=== PATIENT | female | born 1990 | race African-American/Black ===

== ENCOUNTER 2017-01-08 16:08 | Emergency (ER) | payer OTHER ==
[~2017-01-08] VITALS: Ht 152.4 cm; Wt 59.0 kg
[2017-01-08 16:45] VITALS: BP 120/71
--- NOTE | 2017-01-08 17:11 | PHYS DOC ---
Past Medical History Past Medical History: No Pertinent History Past Surgical History: No Surgical History Additional Information: Nonsmoker Alcohol Use: Occasionally Drug Use: None Adult General Chief Complaint Chief Complaint: SORE THROAT HPI HPI Patient is a 26 year old female who presents with sore throat and subjective fever starting yesterday. She reports nasal congestion and frontal headache as well. She denies cough, any ear pain, or shortness of breath. She did receive a flu shot this season. She denies any known sick contacts. Her PCP is Dr. Matthew. Review of Systems Review of Systems Constitutional: Reports subjective fever. Eyes: Denies change in visual acuity, redness, or eye pain. [] HENT: Denies ear pain. Reports sore throat and nasal congestion. Respiratory: Denies cough or shortness of breath. [] Cardiovascular: Denies chest pain, palpitations or edema. [] GI: Denies abdominal pain, nausea, vomiting, bloody stools or diarrhea. [] : Denies dysuria, hematuria or urinary frequency. [] Musculoskeletal: Denies back pain or joint pain. [] Integument: Denies rash or skin lesions. [] Neurologic: Denies focal weakness or sensory changes. Reports frontal headache. Endocrine: Denies polyuria or polydipsia. [] Psych: Denies anxiety or depression. [] All systems reviewed and negative unless otherwise stated in the HPI. Allergies Allergies Allergies Coded Allergies Type Severity Reaction Last Updated Verified No Known Drug Allergies 04/19/14 No Physical Exam Physical Exam Constitutional: Well developed, well nourished, no acute distress, non-toxic appearance. [] HENT: Normocephalic, atraumatic, bilateral external ears normal, oropharynx moist, no oral exudates, nose normal. Bilateral TMs without erythema or bulging. There is no posterior pharyngeal erythema, but bilateral tonsils are mildly swollen with exudates. Bilateral nasal turbinates are swollen and erythematous with purulent drainage. Eyes: PERRLA, EOMI, conjunctiva normal, no discharge. [] Neck: Normal range of motion, no tenderness, supple, no stridor. [] Cardiovascular: Heart rate regular rhythm, no murmur [] Lungs & Thorax: Bilateral breath sounds clear to auscultation without wheezes, rales, or rhonchi. Skin: Warm, dry, no erythema, no rash. [] Neurologic: Alert and oriented X 3, normal motor function, normal sensory function, no focal deficits noted. [] Psychologic: Affect normal, judgement normal, mood normal. [] Current Patient Data Vital Signs Vital Signs Date Time Temp Pulse Resp B/P Pulse Ox O2 Delivery O2 Flow Rate FiO2 01/08/17 16:45 98.8 102 18 100 Room Air 98.8 Lab Values Laboratory Tests Test 01/08/17 16:50 Influenza Type A Antigen Negative (NEGATIVE) Influenza Type B Antigen Negative (NEGATIVE) EKG EKG [] Radiology/Procedures Radiology/Procedures [] Course & Med Decision Making Course & Med Decision Making Pertinent Labs and Imaging studies reviewed. (See chart for details) Rapid strep negative. I discussed the results with the patient. I recommended Tylenol and ibuprofen for fever or pain control. She is encouraged to increase water intake and get plenty of rest. The patient seemed annoyed with the results. She left prior to receiving her discharge paperwork. Dragon Disclaimer Dragon Disclaimer This electronic medical record was generated, in whole or in part, using a voice recognition dictation system. Departure Departure Impression: Primary Impression: Pharyngitis Disposition: 01 HOME, SELF-CARE Condition: STABLE Referrals: CHALO MATTHEW MD (PCP) Problem Qualifiers Primary Impression: Pharyngitis Pharyngitis/tonsillitis etiology: unspecified etiology Qualified Code: J02.9 - Acute pharyngitis, unspecified GIANNI PARRA Jan 08, 2017 17:11
[2017-01-08 17:36] LABS: OBC FLU VALID
[2017-01-09 06:27] LABS: NEGATIVE OBC STREP NEG; POSITIVE OBC STREP POS
== END 2017-01-08 17:00 | disposition home or self-care (01) ==
LOC: ER 16:08
DX: J02.9 Acute pharyngitis, unspecified (principal)
CPT/HCPCS: 87070; 87804; 87880; 99284

== ENCOUNTER 2017-08-29 05:02 | Emergency (ER) | payer OTHER ==
[~2017-08-29] VITALS: Ht 162.6 cm; Wt 59.0 kg
[2017-08-29 05:15] VITALS: BP 114/80
[2017-08-29] MEDS ORDERED: IBUP-1060 PO (05:16)
--- NOTE | 2017-08-29 05:17 | PHYS DOC ---
Past Medical History Past Medical History: No Pertinent History Past Surgical History: No Surgical History Alcohol Use: Occasionally Drug Use: None Adult General Chief Complaint Chief Complaint: INSECT BITE HPI HPI Patient is a 27 year old f who presents with 2 insect bites to her left anterior thigh and left ring finger. Patient states these bites occurred yesterday. Patient complains of some increased swelling to her left thigh. Patient denies any fevers. Patient denies any systemic symptoms. Patient denies any chest pain or shortness of breath. Patient denies any nausea/vomiting/ diarrhea. Patient denies any difficulty walking. Patient states she put some hydrocortisone cream on it and the swelling got worse. Patient has no other complaints. Review of Systems Review of Systems GEN: Denies fevers, chills, sweats HEENT: Denies blurred vision, sore throat CV: Denies chest pain RESP: Denies shortness of air, cough GI: Denies n/v/d NEURO: Denies confusion, dizziness MSK: Denies weakness, joint pain/swelling SKIN: Insect bite Allergies Allergies Allergies Coded Allergies Type Severity Reaction Last Updated Verified No Known Drug Allergies 04/19/14 No Physical Exam Physical Exam GEN.: No apparent distress. Alert and oriented. HEENT: Head is normocephalic, atraumatic NECK: Supple. LUNGS: CTAB. HEART: RRR, S1, S2 present. Peripheral pulses intact ABDOMEN: Soft, nontender. Positive bowel sounds. EXTREMITIES: Without any cyanosis. 2 insect bites to the left anterior thigh with swelling, and no area of fluctuance, no erythema, no purulent drainage. No area of swelling to the left ring finger. NEUROLOGIC: Normal speech, normal tone PSYCHIATRIC: Normal affect, normal mood. SKIN: No ulcerations EKG EKG [] Radiology/Procedures Radiology/Procedures [] Course & Med Decision Making Course & Med Decision Making Pertinent Labs and Imaging studies reviewed. (See chart for details) ED course: Patient was seen and examined emergency room based on examination I do not believe the patient is having anaphylaxis or systemic reaction from insect bites. I do not believe these are abscesses that need to be drained. I did offer the patient a shot of Decadron to help with the inflammation and swelling however the patient declined the steroid shot and have agreed upon 800 mg of Motrin 3 times a day as needed to help with inflammation. I recommended short- term follow-up with PCP for further evaluation and management. If signs or symptoms of systemic infection such as a fever or purulent drainage from the area of her left thigh or increased redness and warmth she is return immediately to the emergency room for further evaluation and management. At this time I do not believe the patient needs antibiotics. Patient is stable for discharge. Patient was provided with a prescription of 800 mg of Motrin [] Dragon Disclaimer Dragon Disclaimer This electronic medical record was generated, in whole or in part, using a voice recognition dictation system. Departure Departure Impression: Primary Impression: Insect bite Disposition: 01 HOME, SELF-CARE Condition: STABLE Patient Instructions: Insect Bite, [id number] Additional Instructions: Please follow-up with your family physician in the next one to 2 days and return if symptoms increase Scripts Ibuprofen (IBUPROFEN) 800 Mg Tablet 800 MG PO PRN Q8HRS Y for INFLAMMATION for 10 Days, #30 TAB Prov: ROB PACHECO DO 08/29/17 ROB PACHECO DO Aug 29, 2017 05:17
== END 2017-08-29 05:29 | disposition home or self-care (01) ==
LOC: ER 05:02
DX: S70.362A Insect bite (nonvenomous), left thigh, initial encounter (principal); S60.465A Insect bite (nonvenomous) of left ring finger, initial encounter; W57.XXXA Bitten or stung by nonvenomous insect and other nonvenomous arthropods, initial encounter; Y93.89 Activity, other specified; Y99.8 Other external cause status; Y92.89 Other specified places as the place of occurrence of the external cause
CPT/HCPCS: 99282

== ENCOUNTER 2017-12-24 17:28 | Emergency (ER) | payer OTHER ==
[2017-12-24 17:57] LABS: URINE HCG POC HCG POSITIVE (Negative)
[2017-12-24 18:14] LABS: BILIRUBIN,URINE SMALL (NEG); CLARITY,URINE CLEAR; COLOR,URINE AMBER; GLUCOSE,URINE NEGATIVE (NEG); NITRITE,URINE NEGATIVE (NEG); PROTEIN,URINE 30 mg/dL (NEG-TRACE)
[2017-12-24] MEDS: ONDANSETRON ODT 4 MG TAB.RAPDIS. PO ×3 (18:14)
[2017-12-24 18:24] LABS: BACTERIA,URINE 0 /HPF (0-FEW); RBC,URINE 0 /HPF (0-2); SQUAMOUS EPITHELIAL CELL,UR MOD /LPF; WBC,URINE RARE /HPF (0-4)
[2017-12-24] MEDS: IV NORMAL SALINE 1000ML BAG 1,000 ML IV ×3 (18:26)
[2017-12-24 18:33] LABS: ADD MAN DIFF? NO
[2017-12-24 18:37] LABS: BASO % 1 % (0-3); EOS % 1 % (0-3); HEMATOCRIT 30.4 % (36.0-47.0); HEMOGLOBIN 9.6 g/dL (12.0-15.5); LYMPH # 0.9 x10^3/uL (1.0-4.8); LYMPH % 18 % (24-48); MEAN CORPUSCULAR HEMOGLOBIN 22 pg (25-35); MEAN CORPUSCULAR HGB CONC 32 g/dL (31-37); MEAN CORPUSCULAR VOLUME 71 fL (79-100); MONO # 0.6 x10^3/uL (0.0-1.1); MONO % 12 % (0-9); NEUT # 3.6 x10^3uL (1.8-7.7); NEUT % 68 % (31-73); PLATELET COUNT 289 x10^3/uL (140-400); RED BLOOD COUNT 4.27 x10^6/uL (3.50-5.40); RED CELL DISTRIBUTION WIDTH 19.8 % (11.5-14.5); WHITE BLOOD COUNT 5.3 x10^3/uL (4.0-11.0)
[2017-12-24 18:56] LABS: ANION GAP 14 (6-14); BLOOD UREA NITROGEN 10 mg/dL (7-20); BUN/CREATININE RATIO 14 (6-20); CALCIUM 9.4 mg/dL (8.5-10.1); CARBON DIOXIDE 21 mmol/L (21-32); CHLORIDE 101 mmol/L (98-107); CREATININE 0.7 mg/dL (0.6-1.0); GFR 121.5; GLUCOSE 94 mg/dL (70-99); POTASSIUM 3.5 mmol/L (3.5-5.1); SODIUM 136 mmol/L (136-145)
[2017-12-24 19:03] LABS: ALBUMIN 3.8 g/dL (3.4-5.0); ALBUMIN/GLOBULIN RATIO 0.7 (1.0-1.7); ALK PHOS 51 U/L (46-116); ALT (SGPT) 40 U/L (14-59); AST (SGOT) 26 U/L (15-37); LIPASE 74 U/L (73-393); TOTAL BILIRUBIN 0.5 mg/dL (0.2-1.0)
[2017-12-24 19:10] LABS: ANISOCYTOSIS SLIGHT; HYPOCHROMIA MOD; MICROCYTOSIS MOD; PLT ESTIMATE ADEQUATE (ADEQUATE); POIKILOCYTOSIS SLIGHT
== END 2017-12-24 20:39 | disposition home or self-care (01) ==
LOC: ER 17:28
DX: R10.30 Lower abdominal pain, unspecified (principal); Z33.1 Pregnant state, incidental (principal); R11.2 Nausea with vomiting, unspecified; R10.2 Pelvic and perineal pain
CPT/HCPCS: 36415; 76816; 80053; 81001; 81025; 83690; 84702; 85025; 96360; 96361; 99285-25; J7030; Q0162

== ENCOUNTER 2018-01-05 09:15 | Inpatient (IN) | payer OTHER ==
[2018-01-05 10:20] LABS: ADD MAN DIFF? NO
[2018-01-05 10:23] LABS: BILIRUBIN,URINE SMALL (NEG); CLARITY,URINE CLEAR; COLOR,URINE AMBER; GLUCOSE,URINE NEGATIVE (NEG); NITRITE,URINE NEGATIVE (NEG); PROTEIN,URINE 100 mg/dL (NEG-TRACE)
[2018-01-05 10:26] LABS: BASO % 1 % (0-3); EOS % 0 % (0-3); HEMATOCRIT 31.8 % (36.0-47.0); HEMOGLOBIN 10.1 g/dL (12.0-15.5); LYMPH # 0.4 x10^3/uL (1.0-4.8); LYMPH % 7 % (24-48); MEAN CORPUSCULAR HEMOGLOBIN 23 pg (25-35); MEAN CORPUSCULAR HGB CONC 32 g/dL (31-37); MEAN CORPUSCULAR VOLUME 71 fL (79-100); MONO # 0.4 x10^3/uL (0.0-1.1); MONO % 8 % (0-9); NEUT # 4.8 x10^3uL (1.8-7.7); NEUT % 84 % (31-73); PLATELET COUNT 285 x10^3/uL (140-400); RED CELL DISTRIBUTION WIDTH 19.8 % (11.5-14.5); WHITE BLOOD COUNT 5.7 x10^3/uL (4.0-11.0)
[2018-01-05] MEDS: IV DEXTROSE 5% 500 ML IV (10:30)
[2018-01-05 10:38] LABS: BACTERIA,URINE 0 /HPF (0-FEW); RBC,URINE 0 /HPF (0-2)
[2018-01-05 10:42] LABS: ANION GAP 14 (6-14); BLOOD UREA NITROGEN 14 mg/dL (7-20); BUN/CREATININE RATIO 20 (6-20); CALCIUM 9.5 mg/dL (8.5-10.1); CARBON DIOXIDE 22 mmol/L (21-32); CHLORIDE 98 mmol/L (98-107); CREATININE 0.7 mg/dL (0.6-1.0); GFR 121.5; GLUCOSE 88 mg/dL (70-99); POTASSIUM 3.2 mmol/L (3.5-5.1); SODIUM 134 mmol/L (136-145)
[2018-01-05 10:48] LABS: ALBUMIN/GLOBULIN RATIO 0.7 (1.0-1.7); ALK PHOS 49 U/L (46-116); ALT (SGPT) 28 U/L (14-59); AST (SGOT) 27 U/L (15-37); TOTAL BILIRUBIN 0.6 mg/dL (0.2-1.0); TOTAL PROTEIN 9.4 g/dL (6.4-8.2)
[2018-01-05] MEDS: IV NORMAL SALINE 1000ML BAG 1,000 ML IV ×2 (10:49→10:52)
[2018-01-05] MEDS: ONDANSETRON PF 4 MG/2 ML VIAL. IV (10:49)
[2018-01-05] MEDS: RINGERS LACTATED IV ×2 (16:40→20:54)
[2018-01-05] MEDS: POTASSIUM CHLORIDE IV ×2 (16:40→20:54)
[2018-01-05] MEDS: ACETAMINOPHEN 325 MG TABLET. PO (18:26)
[2018-01-06] MEDS: POTASSIUM CHLORIDE IV ×3 (01:09→13:52)
[2018-01-06] MEDS: RINGERS LACTATED IV ×3 (01:09→13:52)
[2018-01-06 06:38] LABS: ADD MAN DIFF? NO
[2018-01-06 06:56] LABS: BASO % 1 % (0-3); EOS % 1 % (0-3); HEMATOCRIT 26.8 % (36.0-47.0); HEMOGLOBIN 8.4 g/dL (12.0-15.5); LYMPH # 0.7 x10^3/uL (1.0-4.8); LYMPH % 28 % (24-48); MEAN CORPUSCULAR HEMOGLOBIN 22 pg (25-35); MEAN CORPUSCULAR HGB CONC 31 g/dL (31-37); MEAN CORPUSCULAR VOLUME 71 fL (79-100); MONO # 0.4 x10^3/uL (0.0-1.1); MONO % 14 % (0-9); NEUT # 1.5 x10^3uL (1.8-7.7); NEUT % 56 % (31-73); PLATELET COUNT 184 x10^3/uL (140-400); RED BLOOD COUNT 3.76 x10^6/uL (3.50-5.40); RED CELL DISTRIBUTION WIDTH 19.7 % (11.5-14.5); WHITE BLOOD COUNT 2.6 x10^3/uL (4.0-11.0)
[2018-01-06 07:04] LABS: ALBUMIN 2.8 g/dL (3.4-5.0); ALBUMIN/GLOBULIN RATIO 0.7 (1.0-1.7); ALK PHOS 36 U/L (46-116); ALT (SGPT) 18 U/L (14-59); ANION GAP 11 (6-14); AST (SGOT) 16 U/L (15-37); BLOOD UREA NITROGEN 2 mg/dL (7-20); BUN/CREATININE RATIO 5 (6-20); CALCIUM 8.3 mg/dL (8.5-10.1); CARBON DIOXIDE 21 mmol/L (21-32); CHLORIDE 102 mmol/L (98-107); CREATININE 0.4 mg/dL (0.6-1.0); GFR 231.7; GLUCOSE 78 mg/dL (70-99); POTASSIUM 3.4 mmol/L (3.5-5.1); SODIUM 134 mmol/L (136-145); TOTAL BILIRUBIN 0.5 mg/dL (0.2-1.0); TOTAL PROTEIN 6.8 g/dL (6.4-8.2)
[2018-01-06] MEDS: ONDANSETRON PF 4 MG/2 ML VIAL. IV (08:03)
[2018-01-06 10:31] LABS: ANISOCYTOSIS SLIGHT; HYPOCHROMIA MOD; MICROCYTOSIS MOD; OVALOCYTES PRESENT; PLT ESTIMATE ADEQUATE (ADEQUATE); POIKILOCYTOSIS PRESENT
[2018-01-06] MEDS: ACETAMINOPHEN 325 MG TABLET. PO (17:31)
[2018-01-06] MEDS ORDERED: PROMETHAZINE 25 MG SUPP.RECT. PR (18:45)
[2018-01-07] MEDS: RINGERS LACTATED IV ×3 (02:20→18:21)
[2018-01-07] MEDS: POTASSIUM CHLORIDE IV ×3 (02:20→18:21)
[2018-01-07] MEDS: ONDANSETRON IV ×3 (02:20→18:21)
[2018-01-07 05:33] LABS: ALBUMIN 2.8 g/dL (3.4-5.0); ALBUMIN/GLOBULIN RATIO 0.8 (1.0-1.7); ALK PHOS 40 U/L (46-116); ALT (SGPT) 16 U/L (14-59); ANION GAP 9 (6-14); AST (SGOT) 13 U/L (15-37); BLOOD UREA NITROGEN 3 mg/dL (7-20); BUN/CREATININE RATIO 6 (6-20); CALCIUM 8.6 mg/dL (8.5-10.1); CARBON DIOXIDE 24 mmol/L (21-32); CHLORIDE 103 mmol/L (98-107); CREATININE 0.5 mg/dL (0.6-1.0); GFR 179.1; GLUCOSE 83 mg/dL (70-99); POTASSIUM 3.9 mmol/L (3.5-5.1); SODIUM 136 mmol/L (136-145); TOTAL BILIRUBIN 0.3 mg/dL (0.2-1.0); TOTAL PROTEIN 6.5 g/dL (6.4-8.2)
[2018-01-07] MEDS: PROMETHAZINE 12.5 MG TABLET. PO (10:21)
[2018-01-07] MEDS ORDERED: PYRIDOXINE 50 MG TABLET. PO (16:30)
[2018-01-07] MEDS ORDERED: diphenhydrAMINE HCL 25 MG CAPSULE PO (16:30)
[2018-01-07] MEDS: PYRIDOXINE 50 MG TABLET. PO (21:04)
[2018-01-07] MEDS: diphenhydrAMINE HCL 25 MG CAPSULE PO (21:04)
[2018-01-08] MEDS: ONDANSETRON IV ×2 (01:52→10:44)
[2018-01-08] MEDS: POTASSIUM CHLORIDE IV ×2 (01:52→10:44)
[2018-01-08] MEDS: RINGERS LACTATED IV ×2 (01:52→10:44)
[2018-01-08] MEDS: diphenhydrAMINE HCL 25 MG CAPSULE PO ×2 (07:32→11:53)
[2018-01-08] MEDS: PYRIDOXINE 50 MG TABLET. PO ×2 (07:32→11:53)
== END 2018-01-08 15:21 | disposition home or self-care (01) | DRG 781 ==
LOC: ER 09:15 → 3 NORTH 13:00
DX: O21.0 Mild hyperemesis gravidarum (principal); O30.001 Twin pregnancy, unspecified number of placenta and unspecified number of amniotic sacs, first trimester; Z3A.14 14 weeks gestation of pregnancy
CPT/HCPCS: 36415; 76802; 80053; 81001; 84702; 85025; 87086; 96361; 96374; 99285-25; J2405; J3480; J7030; J7120; Q0163; Q0169

== ENCOUNTER 2018-01-13 17:40 | Inpatient (IN) | payer OTHER ==
[2018-01-13] MEDS ORDERED: IV NORMAL SALINE 1000ML BAG 1,000 ML IV (18:19)
[2018-01-13] MEDS: METOCLOPRAMIDE HCL 10 MG/2 ML VIAL. IV ×2 (18:29→21:03)
[2018-01-13] MEDS: IV NORMAL SALINE 1000ML BAG 1,000 ML IV (18:29)
[2018-01-13 18:33] LABS: ADD MAN DIFF? NO
[2018-01-13 18:35] LABS: BASO % 1 % (0-3); EOS % 0 % (0-3); HEMATOCRIT 29.9 % (36.0-47.0); HEMOGLOBIN 9.7 g/dL (12.0-15.5); LYMPH # 0.8 x10^3/uL (1.0-4.8); LYMPH % 17 % (24-48); MEAN CORPUSCULAR HEMOGLOBIN 23 pg (25-35); MEAN CORPUSCULAR HGB CONC 32 g/dL (31-37); MEAN CORPUSCULAR VOLUME 69 fL (79-100); MONO # 0.5 x10^3/uL (0.0-1.1); MONO % 10 % (0-9); NEUT # 3.4 x10^3uL (1.8-7.7); NEUT % 72 % (31-73); PLATELET COUNT 256 x10^3/uL (140-400); RED BLOOD COUNT 4.31 x10^6/uL (3.50-5.40); RED CELL DISTRIBUTION WIDTH 20.1 % (11.5-14.5); WHITE BLOOD COUNT 4.7 x10^3/uL (4.0-11.0)
[2018-01-13 18:49] LABS: ANION GAP 13 (6-14); BLOOD UREA NITROGEN 10 mg/dL (7-20); CALCIUM 9.3 mg/dL (8.5-10.1); CARBON DIOXIDE 23 mmol/L (21-32); CHLORIDE 102 mmol/L (98-107); CREATININE 0.6 mg/dL (0.6-1.0); GFR 145.1; GLUCOSE 98 mg/dL (70-99); POTASSIUM 3.4 mmol/L (3.5-5.1); SODIUM 138 mmol/L (136-145)
[2018-01-13 19:09] LABS: ANISOCYTOSIS MOD; HYPOCHROMIA MOD; MICROCYTOSIS MOD; OVALOCYTES FEW; PLT ESTIMATE ADEQUATE (ADEQUATE)
[2018-01-13] MEDS ORDERED: PROMETHAZINE 25 MG SUPP.RECT. PR (19:15)
[2018-01-13] MEDS ORDERED: IV RINGERS,LACTATED 500ML 500 ML IV (19:15)
[2018-01-13] MEDS ORDERED: 0.9 % SODIUM CHLORIDE 10 ML DISP.SYRIN. IV (19:15)
[2018-01-13] MEDS ORDERED: MAG HYDROX/ALUMINUM HYD/SIMETH 30 ML ORAL.SUSP PO (19:15)
[2018-01-13] MEDS ORDERED: ZOLPIDEM 5 MG TABLET. PO (19:15)
[2018-01-13] MEDS: IV DEXTROSE 5%-LACT RINGERS 1,000 ML IV (19:59)
[2018-01-13] MEDS: LACT RINGERS IV (20:00)
[2018-01-13] MEDS: PYRIDOXINE 50 MG TABLET. PO (20:00)
[2018-01-13] MEDS: MULTIVIT INFUSN ADULT K IV (20:00)
[2018-01-13] MEDS ORDERED: LACT RINGERS IV (20:00)
[2018-01-13] MEDS ORDERED: MULTIVIT INFUSN ADULT K IV (20:00)
[2018-01-13] MEDS ORDERED: DEXTROSE IV (20:00)
[2018-01-13] MEDS: DEXTROSE IV (20:00)
[2018-01-14] MEDS: ONDANSETRON PF 4 MG/2 ML VIAL. IV ×4 (00:03→17:59)
[2018-01-14] MEDS: IV DEXTROSE 5%-LACT RINGERS 1,000 ML IV ×3 (03:04→20:22)
[2018-01-14 06:35] LABS: ADD MAN DIFF? NO
[2018-01-14 06:56] LABS: BASO % 1 % (0-3); EOS % 1 % (0-3); HEMATOCRIT 27.1 % (36.0-47.0); HEMOGLOBIN 8.4 g/dL (12.0-15.5); LYMPH # 0.8 x10^3/uL (1.0-4.8); LYMPH % 25 % (24-48); MEAN CORPUSCULAR HEMOGLOBIN 22 pg (25-35); MEAN CORPUSCULAR HGB CONC 31 g/dL (31-37); MEAN CORPUSCULAR VOLUME 70 fL (79-100); MONO # 0.4 x10^3/uL (0.0-1.1); MONO % 14 % (0-9); NEUT # 1.8 x10^3uL (1.8-7.7); NEUT % 59 % (31-73); PLATELET COUNT 218 x10^3/uL (140-400); RED BLOOD COUNT 3.85 x10^6/uL (3.50-5.40); RED CELL DISTRIBUTION WIDTH 20.3 % (11.5-14.5); WHITE BLOOD COUNT 3.1 x10^3/uL (4.0-11.0)
[2018-01-14 06:59] LABS: ALBUMIN 2.8 g/dL (3.4-5.0); ALBUMIN/GLOBULIN RATIO 0.7 (1.0-1.7); ALK PHOS 36 U/L (46-116); ALT (SGPT) 38 U/L (14-59); ANION GAP 12 (6-14); AST (SGOT) 22 U/L (15-37); BLOOD UREA NITROGEN 5 mg/dL (7-20); BUN/CREATININE RATIO 8 (6-20); CALCIUM 8.8 mg/dL (8.5-10.1); CARBON DIOXIDE 21 mmol/L (21-32); CHLORIDE 104 mmol/L (98-107); CREATININE 0.6 mg/dL (0.6-1.0); GFR 145.1; GLUCOSE 113 mg/dL (70-99); POTASSIUM 3.3 mmol/L (3.5-5.1); SODIUM 137 mmol/L (136-145); TOTAL BILIRUBIN 0.3 mg/dL (0.2-1.0); TOTAL PROTEIN 6.9 g/dL (6.4-8.2)
[2018-01-14 07:03] LABS: BILIRUBIN,URINE NEGATIVE (NEG); CLARITY,URINE CLEAR; COLOR,URINE YELLOW; GLUCOSE,URINE NEGATIVE (NEG); NITRITE,URINE NEGATIVE (NEG); PROTEIN,URINE NEGATIVE (NEG-TRACE)
[2018-01-14 07:17] LABS: BACTERIA,URINE 0 /HPF (0-FEW); RBC,URINE 0 /HPF (0-2); SQUAMOUS EPITHELIAL CELL,UR FEW /LPF; WBC,URINE 20-40 /HPF (0-4)
[2018-01-14] MEDS: METOCLOPRAMIDE HCL 10 MG/2 ML VIAL. IV ×3 (07:37→21:36)
[2018-01-14] MEDS: PYRIDOXINE 50 MG TABLET. PO ×2 (07:37→14:55)
[2018-01-14] MEDS: PRENATAL MULTIVITAMIN TABLET. PO (12:15)
[2018-01-14] MEDS: ACETAMINOPHEN 325 MG TABLET. PO (16:46)
[2018-01-14] MEDS: MULTIVIT INFUSN ADULT K IV (20:21)
[2018-01-14] MEDS: DEXTROSE IV (20:21)
[2018-01-14] MEDS: LACT RINGERS IV (20:21)
[2018-01-15] MEDS: ONDANSETRON PF 4 MG/2 ML VIAL. IV ×4 (00:06→17:59)
[2018-01-15] MEDS: IV DEXTROSE 5%-LACT RINGERS 1,000 ML IV (05:45)
[2018-01-15] MEDS: METOCLOPRAMIDE HCL 10 MG/2 ML VIAL. IV ×4 (08:00→21:00)
[2018-01-15] MEDS: PRENATAL MULTIVITAMIN TABLET. PO (08:26)
[2018-01-15] MEDS: PYRIDOXINE 50 MG TABLET. PO ×6 (08:29→21:00)
[2018-01-15] MEDS: LACT RINGERS IV (19:59)
[2018-01-15] MEDS: DEXTROSE IV (19:59)
[2018-01-15] MEDS: MULTIVIT INFUSN ADULT K IV (19:59)
[2018-01-16] MEDS: ONDANSETRON PF 4 MG/2 ML VIAL. IV ×2 (05:40)
[2018-01-16] MEDS: PRENATAL MULTIVITAMIN TABLET. PO (07:38)
[2018-01-16] MEDS: METOCLOPRAMIDE HCL 10 MG/2 ML VIAL. IV (07:38)
[2018-01-16] MEDS: ONDANSETRON ODT 4 MG TAB.RAPDIS. PO ×2 (12:24→20:33)
[2018-01-16] MEDS: PYRIDOXINE 50 MG TABLET. PO ×3 (13:00→20:33)
[2018-01-17] MEDS: PYRIDOXINE 50 MG TABLET. PO (12:34)
[2018-01-17] MEDS: ONDANSETRON ODT 4 MG TAB.RAPDIS. PO (12:34)
== END 2018-01-17 19:04 | disposition home or self-care (01) | DRG 781 ==
LOC: ER 17:40 → 3 NORTH 18:17 → 3 SO LND 19:19
DX: O21.0 Mild hyperemesis gravidarum (principal); O30.001 Twin pregnancy, unspecified number of placenta and unspecified number of amniotic sacs, first trimester; Z3A.09 9 weeks gestation of pregnancy
CPT/HCPCS: 36415; 80048; 80053; 81001; 85025; 96361; 96374; 99285-25; J2405; J2765; J7030; Q0162

== ENCOUNTER 2018-05-03 19:11 | Observation (INO) | payer OTHER ==
[2018-05-03] MEDS ORDERED: IV RINGERS,LACTATED 1000ML 1,000 ML IV (19:15)
[2018-05-03] MEDS: IV DEXTROSE 5%-LACT RINGERS 1,000 ML IV (19:58)
[2018-05-03 21:57] LABS: BILIRUBIN,URINE NEGATIVE (NEG); CLARITY,URINE CLEAR; COLOR,URINE YELLOW; GLUCOSE,URINE NEGATIVE (NEG); NITRITE,URINE NEGATIVE (NEG); PROTEIN,URINE 30 mg/dL (NEG-TRACE)
[2018-05-03 22:10] LABS: BACTERIA,URINE 0 /HPF (0-FEW); RBC,URINE 0 /HPF (0-2); SQUAMOUS EPITHELIAL CELL,UR FEW /LPF; WBC,URINE 0 /HPF (0-4)
[2018-05-03 22:15] LABS: AMPHETAMINE/METHAMPHETAMINE NEG (NEG); BARBITURATES NEG (NEG); BENZODIAZEPINES NEG (NEG); CANNABINOIDS NEG (NEG); COCAINE NEG (NEG); ETHANOL, URINE NEG (NEG); METHADONE NEG (NEG); OPIATES NEG (NEG); PHENCYCLIDINE NEG (NEG)
== END 2018-05-03 21:45 | disposition home or self-care (01) ==
LOC: 3 SO LND 19:11
DX: O36.8120 Decreased fetal movements, second trimester, not applicable or unspecified (principal); Z79.899 Other long term (current) drug therapy; Z3A.24 24 weeks gestation of pregnancy
CPT/HCPCS: 76816; 80307; 81001; 96360; 96361; G0378; G0379